=== PATIENT | male | born 1985 | race Caucasian/White ===

== ENCOUNTER 2023-07-06 19:08 | Emergency (ER) | payer SELFPAY ==
[2023-07-06 19:13] VITALS: BP 136/92
[2023-07-06 19:27] VITALS: BMI 26.2
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
[2023-07-06 21:00] VITALS: BP 139/87
[2023-07-06 22:36] VITALS: BP 146/39
== END 2023-07-06 22:37 | disposition home or self-care (01) ==
LOC: EMR 19:08
PROVIDERS: EMERGENCY PHYSICIAN Emergency Medicine; FAMILY PHYSICIAN Family Medicine
DX: S13.4XXA Sprain of ligaments of cervical spine, initial encounter (principal); R20.2 Paresthesia of skin; V43.52XA Car driver injured in collision with other type car in traffic accident, initial encounter; Y92.410 Unspecified street and highway as the place of occurrence of the external cause; Z86.16 Personal history of COVID-19
CPT/HCPCS: 99284; 70450; 72125